=== PATIENT | female | born 1975 | race Caucasian/White ===

== ENCOUNTER 2017-12-02 21:04 | Emergency (ER) | payer MEDICAID, OTHER ==
[2017-12-02 21:27] VITALS: TEMP 98.6
[2017-12-02 22:01] LABS: SQUAMOUS EPITHIAL 16 /hpf (0-5); URINE BACTERIA OCC (<OCC); URINE BILIRUBIN NEGATIVE (NEGATIVE); URINE BLOOD 3+ (NEGATIVE); URINE CLARITY Turbid (Clear); URINE COLOR Red (YELLOW); URINE GLUCOSE (UA) NORMAL (Normal); URINE LEUKOCYTE ESTERASE 2+ Leu/uL (Negative); URINE PROTEIN 2+ mg/dL (NEGATIVE); URINE UROBILINOGEN NORMAL mg/dL (0.2-1.0)
--- NOTE | 2017-12-02 22:27 | C.PDOC ---
Chief Complaint (Nursing): Abdominal Pain Past Medical History Vital Signs: Last Vital Signs Temp 98.6 F 12/02/17 21:23 Pulse 94 H 12/02/17 21:23 Resp 14 12/02/17 21:23 BP 131/82 12/02/17 21:23 Pulse Ox 97 12/02/17 21:23 - Medical History PMH: Hypercholesterolemia Surgical History: Appendectomy Family History: States: Unknown Family Hx - Social History Hx Alcohol Use: No Hx Substance Use: No ED Course And Treatment O2 Sat by Pulse Oximetry: 97 Disposition - Disposition
--- NOTE | 2017-12-02 22:27 | C.PDOC ---
History Of Present Illness 42 year old female presents to the ED c/o crampy abdominal pain that started today at 15:00. Patient reports she has her period now and took medication for her pain yesterday which improved the symptoms. Patient reports her pain worsened today and is associated with 3 episodes of vomit also reports is worse than during her usual period. Patient denies headache, CP, SOB, diarrhea, weakness, numbness. Chief Complaint (Nursing): Abdominal Pain History Per: Patient History/Exam Limitations: no limitations Onset/Duration Of Symptoms: Hrs Current Symptoms Are (Timing): Still Present Location Of Pain/Discomfort: Diffuse Radiation Of Pain To:: Back Quality Of Discomfort: Cramping Associated Symptoms: Vomiting, Back Pain Exacerbating Factors: None Alleviating Factors: None Recent travel outside of the [place]: No Additional History Per: Patient Abnormal Vaginal Bleeding: No Last Menstral Period: Now Past Medical History Reviewed: Historical Data, Nursing Documentation, Vital Signs Vital Signs: Last Vital Signs Temp 98.6 F 12/02/17 21:23 Pulse 83 12/02/17 23:24 Resp 20 12/02/17 23:24 BP 126/82 12/02/17 23:24 Pulse Ox 100 12/02/17 23:24 - Medical History PMH: Hypercholesterolemia Surgical History: Appendectomy Family History: States: Unknown Family Hx - Social History Hx Alcohol Use: No Hx Substance Use: No Review Of Systems Constitutional: Negative for: Fever, Chills Cardiovascular: Negative for: Chest Pain Respiratory: Negative for: Shortness of Breath Gastrointestinal: Positive for: Vomiting, Abdominal Pain Musculoskeletal: Positive for: Back Pain Skin: Negative for: Rash Neurological: Negative for: Weakness, Numbness Physical Exam - Physical Exam Appears: Non-toxic, In Acute Distress (secondary to pain) Skin: Normal Color, Warm, Dry Head: Atraumatic, Normacephalic Eye(s): bilateral: Normal Inspection Nose: No Discharge Oral Mucosa: Moist Neck: Normal ROM, Supple Chest: Symmetrical Cardiovascular: Rhythm Regular, No Murmur Respiratory: Normal Breath Sounds, No Rales, No Rhonchi, No Wheezing Gastrointestinal/Abdominal: Soft, Tenderness (vague diffuse lower abdominal ), No Guarding, No Rebound Extremity: Normal ROM, No Tenderness, No Swelling Neurological/Psych: Oriented x3, Normal Motor, Normal Sensation Gait: Steady ED Course And Treatment - Laboratory Results Result Diagrams: 12/02/17 22:35 12/02/17 22:35 O2 Sat by Pulse Oximetry: 97 (ON RA) Pulse Ox Interpretation: Normal Medical Decision Making Medical Decision Making: Impression: abdominal pain, dismenorrea Plan: * Labs * UA * Toradol 30 mg IVP Disposition - Disposition Referrals: [facility] [Outside] Disposition: HOME/ ROUTINE Disposition Time: 05:13 Condition: GOOD Prescriptions: Naproxen [Naprosyn] 500 mg PO BID #20 tablet Instructions: Menstrual Cramps (DC) Forms: [employer] (Lithuanian) Print Language: MALTESE - Clinical Impression Clinical Impression: Dysmenorrhea - Scribe Statement The provider has reviewed the documentation as recorded by the Scribe Ramone Adan All medical record entries made by the Scribe were at my direction and personally dictated by me. I have reviewed the chart and agree that the record accurately reflects my personal performance of the history, physical exam, medical decision making, and the department course for this patient. I have also personally directed, reviewed, and agree with the discharge instructions and disposition.
[2017-12-02 22:38] LABS: BASO # 0.1 K/uL (0.0-0.2); BASO % 0.9 % (0.0-2.0); EOS # 0.1 K/uL (0.0-0.7); EOS % 2.2 % (0.0-4.0); HEMOGLOBIN 13.5 g/dL (11.0-16.0); LYMPH # 1.9 K/uL (1.0-4.3); LYMPH % 31.1 % (20.0-40.0); MEAN CORPUSCULAR HEMOGLOBIN 29.4 pg (27.0-31.0); MEAN CORPUSCULAR HGB CONC 34.2 g/dL (33.0-37.0); MEAN PLATELET VOLUME 8.1 fL (7.2-11.7); MONO # 0.4 K/uL (0.0-0.8); MONO % 6.9 % (0.0-10.0); NEUT # 3.5 K/uL (1.8-7.0); NEUT % 58.9 % (50.0-75.0); RBC 4.6 Mil/uL (3.80-5.20); RED CELL DISTRIBUTION WIDTH 13.8 % (11.5-14.5)
[2017-12-02 22:41] LABS: MEAN CELL VOLUME 85.9 fL (81.0-99.0)
[2017-12-02 22:49] LABS: ALBUMIN 4.2 g/dL (3.5-5.0); ALT/SGPT 43 U/L (9-52); AST/SGOT 33 U/L (14-36); BLOOD UREA NITROGEN 20 mg/dL (7-17); CALCIUM 9.1 mg/dl (8.6-10.4); GFR AFRICAN-AMERICAN > 60; GFR NON-AFRICAN AMERICAN > 60; LIPASE 124 U/L (23-300)
[2017-12-02 23:25] VITALS: BP 126/82; PULSE 83; RESP 20
[2017-12-03 05:14] VITALS: O2SAT 97
== END 2017-12-02 23:25 | disposition home or self-care (01) ==
LOC: C.ER 21:04
DX: N94.6 Dysmenorrhea, unspecified (principal)
CPT/HCPCS: 80053; 81001; 83690; 85025; 87086; 96374; 99284; J1885

== ENCOUNTER 2018-03-10 13:11 | Emergency (ER) | payer OTHER ==
[2018-03-10] MEDS ORDERED: Sodium Chloride 0.9% 1,000 ML IV ONE (13:19)
[2018-03-10 13:20] VITALS: BMI 36.6
[2018-03-10 13:26] VITALS: O2SAT 100
[2018-03-10] MEDS ORDERED: Sodium Chloride 0.9% 1,000 ML ONE (13:29)
[2018-03-10] MEDS ORDERED: Morphine 4 MG/ML VIAL ONE (13:29)
[2018-03-10] MEDS ORDERED: Iohexol 300 100 ML IJ ONE (13:42)
--- NOTE | 2018-03-10 13:45 | C.PDOC ---
History Of Present Illness 42 year old female presents to ED for evaluation of pelvic pain and RLQ abdominal pain. Notes she has history of prolonged menstrual periods, and dysmenorrhea and reports pain is usually tolerable with Diclofenac. Present menstrual period has lasted > 21 days with heavy vaginal bleeding this morning and increased pain from usual. Denies history of ectopic , . Reports having tubal ligation 13 years ago. Notes she usually follows up at outpatient clinic. Denies history of uterine fibroids, and ovarian cysts. Pt claims to have unknown ureteral issues. Denies n/v/d, constipation, back pain, or fever. Time Seen by Provider: 03/10/18 13:19 Chief Complaint (Nursing): Female Genitourinary History Per: Patient History/Exam Limitations: no limitations Past Medical History Reviewed: Historical Data, Nursing Documentation, Vital Signs Vital Signs: Last Vital Signs Temp 98 F 03/10/18 13:26 Pulse 85 03/10/18 14:04 Resp 20 03/10/18 14:04 BP 141/72 03/10/18 14:04 Pulse Ox 100 03/10/18 16:04 - Medical History PMH: Hypercholesterolemia Surgical History: Appendectomy Family History: States: Unknown Family Hx - Social History Hx Alcohol Use: No Hx Substance Use: No Review Of Systems Except As Marked, All Systems Reviewed And Found Negative. Constitutional: Negative for: Fever, Chills Gastrointestinal: Positive for: Abdominal Pain. Negative for: Nausea, Vomiting , Diarrhea, Constipation Genitourinary: Positive for: Pelvic Pain. Negative for: Dysuria, Frequency, Hematuria Musculoskeletal: Negative for: Back Pain Physical Exam - Physical Exam Appears: Non-toxic, Other (obese women; in severe distress) Skin: Normal Color, Warm, Dry Head: Atraumatic, Normacephalic Eye(s): bilateral: Normal Inspection Oral Mucosa: Moist Neck: Normal ROM, Supple Cardiovascular: Rhythm Regular, No Murmur Respiratory: Normal Breath Sounds, No Rales, No Rhonchi, No Wheezing Gastrointestinal/Abdominal: Soft, No Tenderness, No Guarding, No Rebound Back: No CVA Tenderness Pelvic: Adnexal Tenderness (right) Extremity: Normal ROM Neurological/Psych: Oriented x3, Normal Speech ED Course And Treatment - Laboratory Results Result Diagrams: 03/10/18 13:48 03/10/18 13:48 Lab Interpretation: Normal (ua c/w MP, no sig leuks,) Urine POC: Negative O2 Sat by Pulse Oximetry: 100 Pulse Ox Interpretation: Normal Reevaluation Time: 16:04 Reassessment Condition: Improved Medical Decision Making Medical Decision Making: Plan: Blood work Urinalysis Pelvis ultrasound Abd & Pelvis CT Morphine, IV fluids typical discomfort of uterine fibroid with MP ([id number]) or ? ruptured R ovarian cyst (not seen on neither pelvic US nor CT ABD/pelvis) no sig anemia for MP "lasting 21 days" FOS on abd views and ++ fecalization in RLQ- ? abd colic of constipation. AP surgically removed prior. Disposition Doctor Will See Patient In The: Office Counseled Patient/Family Regarding: Studies Performed, Diagnosis - Disposition Disposition: HOME/ ROUTINE Disposition Time: 16:06 Condition: GOOD Forms: [employer] (Bhutanese) - Clinical Impression Clinical Impression: Dysmenorrhea - Scribe Statement The provider has reviewed the documentation as recorded by the Scribe KP All medical record entries made by the Scribe were at my direction and personally dictated by me. I have reviewed the chart and agree that the record accurately reflects my personal performance of the history, physical exam, medical decision making, and the department course for this patient. I have also personally directed, reviewed, and agree with the discharge instructions and disposition.
[2018-03-10 13:57] LABS: BASO # 0.1 K/uL (0.0-0.2); BASO % 0.8 % (0.0-2.0); EOS # 0.2 K/uL (0.0-0.7); EOS % 3.5 % (0.0-4.0); HEMOGLOBIN 13.6 g/dL (11.0-16.0); LYMPH # 2.7 K/uL (1.0-4.3); LYMPH % 40.6 % (20.0-40.0); MEAN CELL VOLUME 88.5 fL (81.0-99.0); MEAN CORPUSCULAR HEMOGLOBIN 29.8 pg (27.0-31.0); MEAN CORPUSCULAR HGB CONC 33.7 g/dL (33.0-37.0); MEAN PLATELET VOLUME 8.9 fL (7.2-11.7); MONO # 0.6 K/uL (0.0-0.8); MONO % 9.2 % (0.0-10.0); NEUT % 45.9 % (50.0-75.0); NRBC % 0.1 % (0.0-2.0); RBC 4.58 Mil/uL (3.80-5.20); RED CELL DISTRIBUTION WIDTH 14.2 % (11.5-14.5); WHITE BLOOD COUNT 6.6 K/uL (4.8-10.8)
[2018-03-10 14:23] LABS: ALB/GLOB RATIO 1.3 (1.0-2.1); ALBUMIN 4.7 g/dL (3.5-5.0); ALT/SGPT 34 U/L (9-52); AST/SGOT 25 U/L (14-36); BLOOD UREA NITROGEN 16 mg/dL (7-17); CALCIUM 9.4 mg/dl (8.6-10.4); GFR AFRICAN-AMERICAN > 60; GFR NON-AFRICAN AMERICAN > 60
--- NOTE | 2018-03-10 15:18 | US ---
Date of service: 03/10/2018 HISTORY: pelvic pain, vag bleed COMPARISON: None available. TECHNIQUE: Transabdominal and transvaginal pelvic ultrasound was performed with longitudinal and transverse images submitted for interpretation. FINDINGS: UTERUS: Measures 7.8 x 4.7 x 5.2 cm. Uterus is anteverted and normal in size with a a a posterior fundal fibroid measuring 2.3 x 2.6 x 2.2 cm submucous in position. No additional fibroid or other mass lesion seen. ENDOMETRIUM: Measures 4.0 mm in diameter. Mid fundal sub mucus fibroid displaces the endometrium anteriorly somewhat. CERVIX: No cervical abnormality identified. RIGHT OVARY: Measures 2.1 x 1.8 x 1.8 cm. No solid mass. Normal flow. LEFT OVARY: Measures 2.1 x 1.4 x 1.4 cm. No solid mass. Normal flow. FREE FLUID: No significant free fluid noted. OTHER FINDINGS: None. IMPRESSION: 2.6 cm submucous fibroid posterior mid fundus with remainder the examination unremarkable including bilateral adnexal compartments.
[2018-03-10 15:40] LABS: HCG,QUALITATIVE URINE NEGATIVE (NEGATIVE)
[2018-03-10 15:53] LABS: URINE BILIRUBIN NEGATIVE (NEGATIVE); URINE BLOOD 3+ (NEGATIVE); URINE CLARITY Turbid (Clear); URINE GLUCOSE (UA) NORMAL (Normal); URINE LEUKOCYTE ESTERASE NEG Leu/uL (Negative); URINE PROTEIN 2+ mg/dL (NEGATIVE); URINE UROBILINOGEN NORMAL mg/dL (0.2-1.0)
[2018-03-10 15:56] LABS: URINE COLOR RED (YELLOW)
--- NOTE | 2018-03-10 16:01 | CT ---
Date of service: 03/10/2018 PROCEDURE: CT Abdomen and Pelvis with contrast HISTORY: RLQ, ? ovarian vs AP COMPARISON: Abdomen pelvis CT examination with contrast 09/26/2011. TECHNIQUE: Contrast dose: Visipaque 320, 100 cc Radiation dose: Total exam DLP = 690.50 mGy-cm. This CT exam was performed using one or more of the following dose reduction techniques: Automated exposure control, adjustment of the mA and/or kV according to patient size, and/or use of iterative reconstruction technique. FINDINGS: LOWER THORAX: Unremarkable. LIVER: Diminished attenuation throughout the liver suggests fatty infiltration without focal mass or definite intrahepatic biliary dilatation. GALLBLADDER AND BILE DUCTS: Unremarkable. PANCREAS: Unremarkable. No gross lesion or ductal dilatation. SPLEEN: Unremarkable. ADRENALS: Unremarkable. No mass. KIDNEYS AND URETERS: A punctate intrarenal calculus is suggested at the upper midpole right kidney. No obstructive uropathy bilaterally or definite solid mass. VASCULATURE: Unremarkable. No aortic aneurysm. BOWEL: Stomach is collapsed with trace fluid in the lumen. Lack of oral contrast agents limits evaluation of gastrointestinal tract. No bowel obstruction appreciable. Prior CT demonstrated appendicitis and surgical clips are now identified at the cecal base suggestive of a interval appendectomy. APPENDIX: Surgically absent. PERITONEUM: Unremarkable. No free fluid. No free air. LYMPH NODES: Unremarkable. No enlarged lymph nodes. BLADDER: Unremarkable. REPRODUCTIVE: No definite adnexal cysts identified bilaterally however there is a mild amount of through fluid identified at the right pelvic perineum which may be from recent cyst rupture. Clinically correlate further. Endometrium appears prominent in the uterus which may be due to fibroid changes or intrinsic endometrial pathology. BONES: No acute fracture. OTHER FINDINGS: None. IMPRESSION: 1. Trace fluid in the right adnexal compartment may be related to recent cyst rupture though no right adnexal cyst is defined at this time. Etiology unclear. Prominent endometrium may be a function of endometrial pathology or possible submucous fibroid, partially degenerated. 2. Surgically absent appendix. 3. Hepatic steatosis. 4. Punctate intrarenal calculus is nonobstructive at the upper midpole right kidney.
[2018-03-10 16:22] VITALS: BP 116/68; PULSE 73; RESP 18; TEMP 98.6
== END 2018-03-10 16:58 | disposition home or self-care (01) ==
LOC: C.ER 13:11
DX: N94.6 Dysmenorrhea, unspecified (principal)
CPT/HCPCS: 74177; 76830; 76856; 80053; 81001; 84702; 84703; 85025; 86850; 86900; 96361; 96374; 96375; 96376; 99285; J1885; J2270; J2405; J7030; Q9967

== ENCOUNTER 2018-08-08 15:34 | Emergency (ER) | payer OTHER ==
[2018-08-08 15:34] VITALS: BMI 36.6
[2018-08-08 15:52] VITALS: TEMP 98.1; O2SAT 100
[2018-08-08] MEDS ORDERED: Sodium Chloride 0.9% 1,000 ML IV ONE (15:59)
[2018-08-08] MEDS ORDERED: Ipratropium 0.02% Inhal Soln (0.5 mg/2.5 ml) UD IH ONE (16:05)
[2018-08-08] MEDS ORDERED: Albuterol-Ipratrop 3 mg / 0.5 (3 ml) UD ONE (16:05)
[2018-08-08 16:12] LABS: BASO # 0.1 K/uL (0.0-0.2); BASO % 1.3 % (0.0-2.0); EOS # 0.1 K/uL (0.0-0.7); EOS % 0.6 % (0.0-4.0); HEMOGLOBIN 13.3 g/dL (11.0-16.0); LYMPH # 1.1 K/uL (1.0-4.3); LYMPH % 11.8 % (20.0-40.0); MEAN CELL VOLUME 88.5 fL (81.0-99.0); MEAN CORPUSCULAR HEMOGLOBIN 29.7 pg (27.0-31.0); MEAN CORPUSCULAR HGB CONC 33.6 g/dL (33.0-37.0); MEAN PLATELET VOLUME 8.5 fL (7.2-11.7); MONO # 0.5 K/uL (0.0-0.8); MONO % 5.2 % (0.0-10.0); NEUT # 7.3 K/uL (1.8-7.0); NEUT % 81.1 % (50.0-75.0); RBC 4.47 Mil/uL (3.80-5.20); RED CELL DISTRIBUTION WIDTH 13.6 % (11.5-14.5)
[2018-08-08] MEDS ORDERED: Sodium Chloride 0.9% 1,000 ML ONE (16:16)
[2018-08-08] MEDS ORDERED: Iodixanol 320 MG/ML 100 ML BOTTLE IV ONE (16:19)
[2018-08-08 16:22] LABS: SQUAMOUS EPITHIAL 6 /hpf (0-5); URINE BACTERIA RARE (<OCC); URINE BILIRUBIN NEGATIVE (NEGATIVE); URINE BLOOD 2+ (NEGATIVE); URINE CLARITY Hazy (Clear); URINE COLOR Yellow (YELLOW); URINE GLUCOSE (UA) NORMAL (Normal); URINE HYALINE CAST 0-2 /lpf (0-2); URINE LEUKOCYTE ESTERASE NEG Leu/uL (Negative); URINE PROTEIN 1+ mg/dL (NEGATIVE); URINE UROBILINOGEN NORMAL mg/dL (0.2-1.0)
[2018-08-08 16:27] LABS: ALB/GLOB RATIO 1.3 (1.0-2.1); ALBUMIN 4.6 g/dL (3.5-5.0); ALT/SGPT 25 U/L (9-52); AST/SGOT 31 U/L (14-36); BLOOD UREA NITROGEN 17 mg/dL (7-17); CALCIUM 9.1 mg/dl (8.6-10.4); GFR NON-AFRICAN AMERICAN > 60; LIPASE 69 U/L (23-300)
--- NOTE | 2018-08-08 16:37 | C.PDOC ---
History Of Present Illness 42 y/o female pt presents to the ER c/o abdominal pain for x1 day. Associated sx includes nausea, vomiting, and heavy menstrual period. Pt denies fever, chills, diarrhea, and spotting. Pt notes she had similar sx previously. Time Seen by Provider: 08/08/18 15:48 Chief Complaint (Nursing): Abdominal Pain History Per: Patient History/Exam Limitations: no limitations Onset/Duration Of Symptoms: Days (x1) Current Symptoms Are (Timing): Still Present Past Medical History Reviewed: Historical Data, Nursing Documentation, Vital Signs Vital Signs: Last Vital Signs Temp 98.1 F 08/08/18 15:41 Pulse 98 H 08/08/18 15:41 Resp 18 08/08/18 15:41 BP 119/79 08/08/18 15:41 Pulse Ox 100 08/08/18 15:41 - Medical History PMH: Hypercholesterolemia Surgical History: Appendectomy Family History: States: Unknown Family Hx - Social History Hx Alcohol Use: No Hx Substance Use: No - Immunization History Hx Tetanus Toxoid Vaccination: No Hx Influenza Vaccination: No Hx Pneumococcal Vaccination: No Review Of Systems Except As Marked, All Systems Reviewed And Found Negative. Gastrointestinal: Positive for: Nausea, Vomiting, Abdominal Pain Physical Exam - Physical Exam Appears: Non-toxic, No Acute Distress Skin: Normal Color, Warm, Dry Head: Atraumatic, Normacephalic Chest: Symmetrical Cardiovascular: Rhythm Regular, No Murmur Respiratory: Normal Breath Sounds, No Rales, No Rhonchi, No Wheezing Gastrointestinal/Abdominal: Soft, Tenderness (suprapubic; RLQ ), No Distention, No Guarding, No Rebound Back: No CVA Tenderness Pelvic: Vaginal Bleeding Extremity: Bilateral: Atraumatic, Normal Color And Temperature, Normal ROM Neurological/Psych: Oriented x3, Normal Speech ED Course And Treatment - Laboratory Results Result Diagrams: 08/08/18 16:07 08/08/18 16:07 O2 Sat by Pulse Oximetry: 100 (RA) Pulse Ox Interpretation: Normal Medical Decision Making Medical Decision Making: Impression: abdominal pain Plans: -- CT abd&pelvis -- chem labs -- blood work -- UA -- Pelvis US Disposition Discussed With : Alli Saini DO - Disposition Disposition Time: 19:00 Condition: STABLE Forms: [employer] (Japanese) - Clinical Impression Clinical Impression: Abdominal pain - Scribe Statement The provider has reviewed the documentation as recorded by the Aggie Castillo Do Provider Attestation: All medical record entries made by the Flynnibe were at my direction and personally dictated by me. I have reviewed the chart and agree that the record accurately reflects my personal performance of the history, physical exam, medical decision making, and the department course for this patient. I have also personally directed, reviewed, and agree with the discharge instructions and disposition. Physician Patient Turnover Patient Signed Over To: Alli Saini DO Handoff Comments: pending imaging, reevaluation and disposition .
[2018-08-08] MEDS ORDERED: Lidocaine 80 MG in Sodium Chloride 0.9% 100 ML IV STA (17:37)
--- NOTE | 2018-08-08 17:40 | CT ---
Date of service: 08/08/2018 PROCEDURE: CT Abdomen and Pelvis with contrast HISTORY: abd pain COMPARISON: CT abdomen and pelvis with IV contrast performed 03/10/18 TECHNIQUE: Contrast dose: 100 mL Visipaque 320 IV Radiation dose: Total exam DLP = 1037.71 mGy-cm. This CT exam was performed using one or more of the following dose reduction techniques: Automated exposure control, adjustment of the mA and/or kV according to patient size, and/or use of iterative reconstruction technique. FINDINGS: LOWER THORAX: No visible consolidation, pleural effusion, or pneumothorax. Small hiatal hernia/distal esophageal wall thickening. LIVER: Unremarkable. GALLBLADDER AND BILE DUCTS: Unremarkable. PANCREAS: Unremarkable. SPLEEN: Unremarkable. ADRENALS: Unremarkable. KIDNEYS AND URETERS: The kidneys enhance symmetrically. No hydronephrosis or obstructing calculus identified. VASCULATURE: No aortic aneurysm. No atherosclerotic calcification or mural plaque present. BOWEL: Stomach is nondistended. Lack of oral contrast limits evaluation for bowel pathology. Bowel loops appear within normal limits of caliber without evidence of obstruction. APPENDIX: Postsurgical changes at the cecum appear consistent with appendectomy. The appendix is not visualized. No secondary signs of acute appendicitis. PERITONEUM: Small pelvic free fluid. No definite free air. LYMPH NODES: No bulky adenopathy identified. BLADDER: Unremarkable. REPRODUCTIVE: Uterus is present with large probable fibroid. BONES: No acute osseous abnormality is detected. OTHER FINDINGS: None. IMPRESSION: Small hiatal hernia/distal esophageal wall thickening. Small pelvic free fluid. Probable large uterine fibroid.
[2018-08-08 18:17] VITALS: RESP 18
[2018-08-08 19:45] VITALS: BP 114/69; PULSE 89
--- NOTE | 2018-08-09 09:31 | US ---
Date of service: 08/08/2018 HISTORY: Abdominal pain COMPARISON: 03/10/2018 TECHNIQUE: Transabdominal and transvaginal pelvic ultrasound was performed. FINDINGS: UTERUS: Measures 9.5 x 5.8 x 7.0 cm. Anteverted and enlarged. There is a 5.1 x 5.1 x 6.5 cm hypoechoic lesion with homogeneous internal echoes and eccentric calcification in the posterior fundus. ENDOMETRIUM: Measures 5.0 mm in diameter. Unremarkable. CERVIX: No cervical abnormality identified. RIGHT OVARY: Measures 2.3 x 1.9 x 2.5 cm. No solid mass. Normal flow. LEFT OVARY: Not visualized. FREE FLUID: No significant free fluid noted. OTHER FINDINGS: None. IMPRESSION: Large 5.5 x 5.1 x 6.5 cm lesion in the fundus increased in size since the prior ultrasound examination which may represent cystic degeneration/hemorrhage in a submucosal posterior fundal fibroid which also demonstrates eccentric calcifications. A preliminary report was provided by [employer].
== END 2018-08-08 19:59 | disposition home or self-care (01) ==
LOC: C.ER 15:34
DX: R10.9 Unspecified abdominal pain (principal); E78.00 Pure hypercholesterolemia, unspecified
CPT/HCPCS: 74177; 76830; 76856; 80053; 81001; 83690; 85025; 96361; 96374; 96375; 99285; J1885; J2001; J2270; J2405; J7030; Q9967